=== PATIENT | female | born 2000 | race Caucasian/White ===

== ENCOUNTER 2024-03-05 13:25 | Emergency (ER) | payer OTHER ==
[~2024-03-05] VITALS: Ht 160 cm; Wt 53.4 kg
[2024-03-05 13:52] LABS: BILIRUBIN,URINE NEGATIVE (Neg); CLARITY,URINE CLEAR (Clear); COLOR,URINE YELLOW (Yellow); GLUCOSE, URINE NEGATIVE (Neg); KETONES,URINE >=80 mg/dl (Neg); LEUKOCYTE ESTERASE ,URINE NEGATIVE (Neg); NITRITES, URINE NEGATIVE (Neg); OCCULT BLOOD,URINE MODERATE (Neg); PH,URINE 8.5 (4.8-8.0); PROTEIN,URINE TRACE mg/dl (Neg); UROBILINOGEN,URINE 0.2 E.U/dL (0.2-1.0)
[2024-03-05 13:53] LABS: URINE HCG NEGATIVE (NEG)
[2024-03-05 13:58] LABS: BASOPHILS % (AUTO) 0.3 % (0-1); EOSINOPHILS % (AUTO) 0.3 % (0-6); HEMATOCRIT 47.2 % (35.0-45.0); HEMOGLOBIN 15.8 g/dl (12.0-16.0); LYMPHOCYTES # (AUTO) 1.1 X10'3 (1.1-4.8); LYMPHOCYTES % (AUTO) 10.2 % (21-51); MEAN CORPUSCULAR HEMOGLOBIN 29.9 PG (27.0-31.0); MEAN CORPUSCULAR HGB CONC 33.6 g/dL (33.0-36.5); MEAN CORPUSCULAR VOLUME 89.2 FL (78-98); MONOCYTES # (AUTO) 0.4 X10'3 (0-0.9); MONOCYTES % (AUTO) 3.8 % (2-12); NEUTROPHILS # (AUTO) 9.5 X10'3 (1.8-7.7); NEUTROPHILS % (AUTO) 85.4 % (42-75); PLATELET COUNT 249 X10'3 (140-440); RED BLOOD COUNT 5.29 X10'6 (4.20-5.60); RED CELL DISTRIBUTION WIDTH 13.2 % (11.5-14.5); WHITE BLOOD COUNT 11.1 X10'3 (4.5-11.0)
[2024-03-05 13:59] LABS: UA COLLECTION TYPE CLN CATCH MIDSTREAM; WBC,URINE 0-4 /HPF (0-4)
[2024-03-05 14:00] LABS: BACTERIA,URINE NONE SEEN /HPF (Neg); MUCUS STRANDS FEW /LPF (Neg); SQUAMOUS EPITHELIAL CELL,UR FEW /LPF (FEW)
[2024-03-05 14:05] LABS: ALANINE AMINOTRANSFERASE 24 U/L (12-78); ALBUMIN 4.4 G/DL (3.4-5.0); ALBUMIN/GLOBULIN RATIO 1.2 (1.1-1.5); ALKALINE PHOSPHATASE 63 IU/L (46-116); ANION GAP 15 (8-16); ASPARTATE AMINO TRANSFERASE 16 U/L (10-37); BILIRUBIN,TOTAL 1.1 MG/DL (0.1-1.0); BLOOD UREA NITROGEN 11 MG/DL (7-18); BUN/CREATININE RATIO 11.3 (10.0-20.0); CALCIUM 9.5 MG/DL (8.5-10.1); CHLORIDE 105 MMOL/L (99-107); CREATININE 0.97 MG/DL (0.40-0.90); GLUCOSE 143 MG/DL (70-104); LIPASE 22 U/L (16-77); POTASSIUM 3.4 MMOL/L (3.5-5.1); SODIUM 141 MMOL/L (135-145); TOTAL CARBON DIOXIDE 20.7 MMOL/L (24-32); TOTAL PROTEIN 8.1 G/DL (6.4-8.2); eCRCL 76 ML/MIN; eGFR 72 ML/MIN
[2024-03-05] MEDS: mag hydrox/Alum hydrox/simeth 30ml oral suspension PO ONE (15:35)
[2024-03-05 15:40] LABS: HCG SERUM QL NEGATIVE
[2024-03-05] MEDS ORDERED: LIDO15SO9 PO (16:13)
[2024-03-05] MEDS ORDERED: MAG355OR18 PO (16:13)
[2024-03-05] MEDS ORDERED: DICY20TA17 PO (16:13)
[2024-03-05] MEDS: dicyclomine 10 MG capsule PO ONE (16:15)
[2024-03-05] MEDS: HYDROcodone/acetaminophen 5mg/325mg tablet PO ONE (16:15)
[2024-03-05] MEDS: ondansetron 4mg rapidly disintigrating tab PO ONE (16:16)
[2024-03-05] MEDS: LIDOcaine 2% Viscous 15ml cup MM PRN (16:18)
[2024-03-05] MEDS: normal saline 1000ml 1,000 ML IV ONE (16:47)
[2024-03-05] MEDS: metoclopramide 5 mg/ml inj IV ONE (16:52)
[2024-03-05] MEDS: diphenhydrAMINE 50 mg/ml inj IV ONE (16:52)
[2024-03-05 17:23] VITALS: TEMP 99.5
[2024-03-05 17:53] VITALS: BP 113/75; PULSE 89; RESP 14; O2SAT 100
== END 2024-03-05 18:45 | disposition home or self-care (01) ==
LOC: ER 13:26
DX: K21.9 Gastro-esophageal reflux disease without esophagitis (principal); R10.13 Epigastric pain; R11.2 Nausea with vomiting, unspecified
CPT/HCPCS: 36415; 74176; 80053; 81001; 81025; 83690; 84703; 85025; 96361; 96374; 96375; 99285; J1200; J2765; J7030